=== PATIENT | female | born 1955 | race Caucasian/White ===

== ENCOUNTER 2019-11-28 16:52 | Inpatient (IN) ==
[2019-11-28] MEDS ORDERED: Ondansetron 4 MG/2 ML VIAL IVP PRN (19:36)
[2019-11-28] MEDS ORDERED: Naloxone 0.4 MG/ML INJ IVP PRN (19:36)
[2019-11-28] MEDS: *HR* LORazepam 2 MG/ML VIAL IVP PRN (20:11)
[2019-11-28 20:50] LABS: Magnesium 1.7 mg/dL (1.6-2.6); Phosphorous 3.1 mg/dL (2.7-4.5)
[2019-11-28] MEDS: *HR* Heparin 5,000 UNIT/ML VIAL SQ SCH (22:40)
[2019-11-28] MEDS: QUEtiapine Fumarate 25 MG TABLET PO SCH (22:52)
[2019-11-28] MEDS: Melatonin 3 MG TABLET PO PRN (22:52)
[2019-11-29] MEDS: *HR* Heparin 5,000 UNIT/ML VIAL SQ SCH ×4 (05:33→20:59)
[2019-11-29 05:38] LABS: Alanine Aminotransferase 12 Units/L (7-52); Albumin 3.2 g/dL (3.5-5.7); Albumin/Globulin Ratio 1.3 (1.1-2.2); Alkaline Phosphatase 69 Units/L (34-104); Aspartate Amino Transferase 15 Units/L (13-39); BUN/Creatinine Ratio 13 (6-26); Bilirubin,Total 0.4 mg/dL (0.3-1.0); Blood Urea Nitrogen 8 mg/dL (8-23); Calcium 9.1 mg/dL (8.6-10.3); Carbon Dioxide 26 mEq/L (23-29); Chloride 106 mEq/L (98-107); Globulin 2.5 g/dL (2.4-3.5); Glucose 85 mg/dL (70-105); Osmolality,Calculated 284 (280-300); Potassium 3.1 mEq/L (3.5-5.1); Sodium 138 mEq/L (136-145); Total Protein 5.7 g/dL (6.4-8.9); eGFR For African Americans > 60 (> 60); eGFR For Non-African Americans > 60 (> 60)
[2019-11-29] MEDS: 0.9 % Sodium Chloride 1,000 ML IVC SCH ×3 (05:54→14:39)
[2019-11-29 08:12] LABS: Basophils % 0.4 %; Eosinophils # 0.1 K/mcL (0.0-0.6); Eosinophils % 0.7 %; Hematocrit 29.9 % (35.3-44.9); Hemoglobin 9.8 g/dL (11.5-15.4); Immature Granulocytes % 0.4 % (0-4); Lymphocytes # 2.8 K/mcL (0.6-4.6); Lymphocytes % 37.1 %; Mean Corpuscular HGB Conc 32.8 g/dL (31.6-35.5); Mean Corpuscular Hemoglobin 32.7 pg (28.0-33.3); Mean Corpuscular Volume 99.7 fL (83.0-100.0); Mean Platelet Volume 9.4 fL (9.4-12.4); Monocytes # 0.8 K/mcL (0.0-1.3); Neutrophils # 3.9 K/mcL (1.6-8.9); Platelet Count 321 K/mcL (140-400); Red Cell Distribution Width 11.9 % (11.5-14.5); Segmented Neutrophils % 51.4 %; White Blood Count 7.6 K/mcL (4.3-11.1)
[2019-11-29] MEDS ORDERED: 0.9 % Sodium Chloride 500 ML IVC ONE (08:25)
[2019-11-29] MEDS: levETIRAcetam 250 MG TABLET PO SCH ×2 (12:32→23:27)
[2019-11-29] MEDS ORDERED: Thiamine (B-1) 100 MG, Folic Acid 1 MG, MVI, adult with vitamin K 10 ML in 0.9 % Sodi... IVPB ONE (12:35)
[2019-11-29] MEDS: *HR* LORazepam 2 MG/ML VIAL IVP PRN (16:32)
[2019-11-29 17:03] LABS: Folate > 22.3 ng/mL (3.0-16.0); Vitamin B12 560 pg/mL (250-1100)
[2019-11-29] MEDS: Melatonin 3 MG TABLET PO PRN (20:58)
[2019-11-29] MEDS: QUEtiapine Fumarate 25 MG TABLET PO SCH (20:59)
[2019-11-30] MEDS: *HR* Heparin 5,000 UNIT/ML VIAL SQ SCH ×3 (05:13→21:15)
[2019-11-30 05:57] LABS: Hematocrit 32.3 % (35.3-44.9); Hemoglobin 10.7 g/dL (11.5-15.4); Mean Corpuscular HGB Conc 33.1 g/dL (31.6-35.5); Mean Corpuscular Hemoglobin 33.5 pg (28.0-33.3); Mean Corpuscular Volume 101.3 fL (83.0-100.0); Mean Platelet Volume 9.1 fL (9.4-12.4); Platelet Count 338 K/mcL (140-400); Red Blood Count 3.19 M/mcL (3.82-4.97); White Blood Count 6.4 K/mcL (4.3-11.1)
[2019-11-30 06:16] LABS: BUN/Creatinine Ratio 24 (6-26); Blood Urea Nitrogen 14 mg/dL (8-23); Carbon Dioxide 18 mEq/L (23-29); Chloride 111 mEq/L (98-107); Glucose 52 mg/dL (70-105); Osmolality,Calculated 290 (280-300); Potassium 3.3 mEq/L (3.5-5.1); Sodium 141 mEq/L (136-145); eGFR For African Americans > 60 (> 60); eGFR For Non-African Americans > 60 (> 60)
[2019-11-30 06:57] LABS: Adenovirus Not Detected (Not Detect); Bordetella Pertussis Not Detected (Not Detect); Chlamydophila pneumoniae Not Detected (Not Detect); Coronavirus 229E Not Detected (Not Detect); Coronavirus HKU1 Not Detected (Not Detect); Coronavirus NL63 Not Detected (Not Detect); Coronavirus OC43 Not Detected (Not Detect); Human Metapneumovirus Not Detected (Not Detect); Human Rhinovirus/Enterovirus Not Detected (Not Detect); Influenza A Subtype 2009 H1 Not Detected (Not Detect); Influenza B Not Detected (Not Detect); Mycoplasma pneumoniae Not Detected (Not Detect); Parainfluenza Virus 1 Not Detected (Not Detect); Parainfluenza Virus 2 Not Detected (Not Detect); Parainfluenza Virus 3 Not Detected (Not Detect); Parainfluenza Virus 4 Not Detected (Not Detect); Respiratory Syncytial Virus Not Detected (Not Detect)
[2019-11-30] MEDS: *HR* LORazepam 2 MG/ML VIAL IVP PRN ×2 (08:41→14:51)
[2019-11-30] MEDS ORDERED: tiZANidine 4 MG TABLET PO PRN (09:11)
[2019-11-30] MEDS: levETIRAcetam 250 MG TABLET PO SCH ×2 (12:09→23:36)
[2019-11-30] MEDS: Multivit/Ca/Min/Fe/FA 1 TAB TABLET PO SCH (12:19)
[2019-11-30] MEDS: Haloperidol Lactate 5 MG/ML VIAL IVP PRN ×2 (16:40→23:36)
[2019-11-30] MEDS: Ranolazine 500 MG TAB.ER.12H PO SCH (21:15)
[2019-11-30] MEDS: cloNIDine HCL 0.1 MG TABLET PO SCH (21:15)
[2019-11-30] MEDS: QUEtiapine Fumarate 25 MG TABLET PO SCH (21:15)
[2019-11-30] MEDS: Gabapentin 300 MG CAPSULE PO SCH (21:15)
[2019-12-01] MEDS: *HR* LORazepam 2 MG/ML VIAL IVP PRN ×2 (03:00→16:25)
[2019-12-01 03:20] LABS: Hematocrit 30.7 % (35.3-44.9); Hemoglobin 10.2 g/dL (11.5-15.4); Mean Corpuscular HGB Conc 33.2 g/dL (31.6-35.5); Mean Corpuscular Hemoglobin 32.9 pg (28.0-33.3); Mean Platelet Volume 9.2 fL (9.4-12.4); Platelet Count 337 K/mcL (140-400); Red Cell Distribution Width 12.1 % (11.5-14.5)
[2019-12-01 03:37] LABS: BUN/Creatinine Ratio 18 (6-26); Blood Urea Nitrogen 11 mg/dL (8-23); Calcium 8.7 mg/dL (8.6-10.3); Carbon Dioxide 17 mEq/L (23-29); Chloride 109 mEq/L (98-107); Glucose 68 mg/dL (70-105); Osmolality,Calculated 282 (280-300); Potassium 3.6 mEq/L (3.5-5.1); Sodium 137 mEq/L (136-145); eGFR For African Americans > 60 (> 60); eGFR For Non-African Americans > 60 (> 60)
[2019-12-01 03:49] LABS: White Blood Count 10.1 K/mcL (4.3-11.1)
[2019-12-01] MEDS: *HR* Heparin 5,000 UNIT/ML VIAL SQ SCH ×3 (04:43→22:08)
[2019-12-01] MEDS: Loratadine 10 MG TABLET PO SCH (07:53)
[2019-12-01] MEDS: Gabapentin 300 MG CAPSULE PO SCH ×2 (07:53→22:08)
[2019-12-01] MEDS: Multivit/Ca/Min/Fe/FA 1 TAB TABLET PO SCH (07:53)
[2019-12-01] MEDS: Ranolazine 500 MG TAB.ER.12H PO SCH ×2 (07:54→22:08)
[2019-12-01] MEDS: PARoxetine 30 MG TABLET PO SCH (07:54)
[2019-12-01] MEDS: Fluticasone Propionate Nasal 50 MCG/SPRAY BOTTLE NS SCH (07:55)
[2019-12-01] MEDS ORDERED: [UNRECOGNIZED DRUG - OTHER] PO SCH (09:00)
[2019-12-01] MEDS: levETIRAcetam 250 MG TABLET PO SCH ×2 (13:01→23:58)
[2019-12-01] MEDS: QUEtiapine Fumarate 25 MG TABLET PO SCH (22:08)
[2019-12-01] MEDS: cloNIDine HCL 0.1 MG TABLET PO SCH (22:08)
[2019-12-01] MEDS: Nicotine 21 MG PATCH.TD24 TD SCH (23:23)
[2019-12-02 05:17] LABS: Hemoglobin 10.7 g/dL (11.5-15.4); Mean Corpuscular HGB Conc 34.5 g/dL (31.6-35.5); Mean Corpuscular Volume 98.4 fL (83.0-100.0); Mean Platelet Volume 9.4 fL (9.4-12.4); Platelet Count 326 K/mcL (140-400); Red Blood Count 3.15 M/mcL (3.82-4.97); Red Cell Distribution Width 12.1 % (11.5-14.5); White Blood Count 11.4 K/mcL (4.3-11.1)
[2019-12-02 05:32] LABS: BUN/Creatinine Ratio 18 (6-26); Blood Urea Nitrogen 11 mg/dL (8-23); Calcium 8.6 mg/dL (8.6-10.3); Carbon Dioxide 24 mEq/L (23-29); Chloride 106 mEq/L (98-107); Glucose 128 mg/dL (70-105); Osmolality,Calculated 285 (280-300); Potassium 3.1 mEq/L (3.5-5.1); Sodium 137 mEq/L (136-145); eGFR For African Americans > 60 (> 60); eGFR For Non-African Americans > 60 (> 60)
[2019-12-02] MEDS: *HR* Heparin 5,000 UNIT/ML VIAL SQ SCH ×3 (05:34→21:14)
[2019-12-02] MEDS: PARoxetine 30 MG TABLET PO SCH (09:36)
[2019-12-02] MEDS: Fluticasone Propionate Nasal 50 MCG/SPRAY BOTTLE NS SCH (09:36)
[2019-12-02] MEDS: Gabapentin 300 MG CAPSULE PO SCH ×2 (09:36→21:13)
[2019-12-02] MEDS: Nicotine 21 MG PATCH.TD24 TD SCH (09:36)
[2019-12-02] MEDS: Ranolazine 500 MG TAB.ER.12H PO SCH ×2 (09:36→21:13)
[2019-12-02] MEDS: Multivit/Ca/Min/Fe/FA 1 TAB TABLET PO SCH (09:36)
[2019-12-02] MEDS: Loratadine 10 MG TABLET PO SCH (09:36)
[2019-12-02] MEDS: Acetaminophen 325 MG TABLET PO PRN (09:39)
[2019-12-02] MEDS: levETIRAcetam 250 MG TABLET PO SCH (11:39)
[2019-12-02] MEDS: Melatonin 3 MG TABLET PO PRN (21:13)
[2019-12-02] MEDS: QUEtiapine Fumarate 25 MG TABLET PO SCH (21:14)
[2019-12-02] MEDS: cloNIDine HCL 0.1 MG TABLET PO SCH (21:14)
[2019-12-03] MEDS: levETIRAcetam 250 MG TABLET PO SCH ×3 (03:47→22:49)
[2019-12-03 04:43] LABS: Hematocrit 34.6 % (35.3-44.9); Hemoglobin 11.5 g/dL (11.5-15.4); Mean Corpuscular HGB Conc 33.2 g/dL (31.6-35.5); Mean Corpuscular Hemoglobin 32.7 pg (28.0-33.3); Mean Corpuscular Volume 98.3 fL (83.0-100.0); Platelet Count 341 K/mcL (140-400); Red Blood Count 3.52 M/mcL (3.82-4.97); Red Cell Distribution Width 12.1 % (11.5-14.5)
[2019-12-03 05:05] LABS: BUN/Creatinine Ratio 17 (6-26); Blood Urea Nitrogen 11 mg/dL (8-23); Calcium 9.4 mg/dL (8.6-10.3); Carbon Dioxide 24 mEq/L (23-29); Chloride 109 mEq/L (98-107); Glucose 90 mg/dL (70-105); Osmolality,Calculated 287 (280-300); Potassium 4.4 mEq/L (3.5-5.1); Sodium 139 mEq/L (136-145); eGFR For African Americans > 60 (> 60); eGFR For Non-African Americans > 60 (> 60)
[2019-12-03] MEDS: *HR* Heparin 5,000 UNIT/ML VIAL SQ SCH ×3 (05:35→21:36)
[2019-12-03] MEDS: Nicotine 21 MG PATCH.TD24 TD SCH ×2 (09:25→16:09)
[2019-12-03] MEDS: Multivit/Ca/Min/Fe/FA 1 TAB TABLET PO SCH (09:53)
[2019-12-03] MEDS: Loratadine 10 MG TABLET PO SCH (09:53)
[2019-12-03] MEDS: Gabapentin 300 MG CAPSULE PO SCH ×2 (09:53→21:31)
[2019-12-03] MEDS: PARoxetine 30 MG TABLET PO SCH (09:53)
[2019-12-03] MEDS: Ranolazine 500 MG TAB.ER.12H PO SCH ×2 (09:53→21:30)
[2019-12-03] MEDS: Fluticasone Propionate Nasal 50 MCG/SPRAY BOTTLE NS SCH (10:12)
[2019-12-03] MEDS: Acetaminophen 325 MG TABLET PO PRN ×2 (14:22→22:49)
[2019-12-03] MEDS: Melatonin 3 MG TABLET PO PRN (21:30)
[2019-12-03] MEDS: QUEtiapine Fumarate 25 MG TABLET PO SCH (21:34)
[2019-12-03] MEDS: cloNIDine HCL 0.1 MG TABLET PO SCH (21:35)
[2019-12-04] MEDS: *HR* LORazepam 2 MG/ML VIAL IVP PRN (01:25)
[2019-12-04] MEDS: *HR* Heparin 5,000 UNIT/ML VIAL SQ SCH ×2 (06:05→11:10)
[2019-12-04] MEDS: Ranolazine 500 MG TAB.ER.12H PO SCH (08:18)
[2019-12-04] MEDS: Multivit/Ca/Min/Fe/FA 1 TAB TABLET PO SCH (08:19)
[2019-12-04] MEDS: PARoxetine 30 MG TABLET PO SCH (08:19)
[2019-12-04] MEDS: Gabapentin 300 MG CAPSULE PO SCH (08:19)
[2019-12-04] MEDS: Nicotine 21 MG PATCH.TD24 TD SCH (08:19)
[2019-12-04] MEDS: Loratadine 10 MG TABLET PO SCH (08:19)
[2019-12-04 08:54] LABS: Hematocrit 34.9 % (35.3-44.9); Hemoglobin 11.9 g/dL (11.5-15.4); Mean Corpuscular HGB Conc 34.1 g/dL (31.6-35.5); Mean Corpuscular Hemoglobin 33.7 pg (28.0-33.3); Mean Corpuscular Volume 98.9 fL (83.0-100.0); Mean Platelet Volume 9.3 fL (9.4-12.4); Platelet Count 394 K/mcL (140-400); Red Blood Count 3.53 M/mcL (3.82-4.97); Red Cell Distribution Width 12.1 % (11.5-14.5); White Blood Count 8.5 K/mcL (4.3-11.1)
[2019-12-04 09:07] LABS: BUN/Creatinine Ratio 32 (6-26); Blood Urea Nitrogen 25 mg/dL (8-23); Calcium 9.7 mg/dL (8.6-10.3); Carbon Dioxide 25 mEq/L (23-29); Chloride 103 mEq/L (98-107); Glucose 103 mg/dL (70-105); Osmolality,Calculated 289 (280-300); Potassium 3.8 mEq/L (3.5-5.1); Sodium 137 mEq/L (136-145); eGFR For African Americans > 60 (> 60); eGFR For Non-African Americans > 60 (> 60)
[2019-12-04] MEDS: Fluticasone Propionate Nasal 50 MCG/SPRAY BOTTLE NS SCH (09:08)
[2019-12-04 10:52] VITALS: BP 116/77
[2019-12-04] MEDS: levETIRAcetam 250 MG TABLET PO SCH (11:04)
== END 2019-12-04 12:50 | disposition home or self-care (01) | DRG 861 ==
LOC: 3BNU
PROVIDERS: ADMIT Internal Medicine; ATTEND Internal Medicine